=== PATIENT | female | born 1990 | race Caucasian/White ===

== ENCOUNTER 2019-11-01 19:31 | Emergency (ER) | payer OTHER, MEDICAID, SELFPAY ==
[2019-11-01 19:37] VITALS: PULSE 67; RESP 18; TEMP 36.9; O2SAT 96
[2019-11-01 19:59] LABS: Add Manual Diff / Slide Review NO; Basophils Absolute Auto 100 /uL (0-100); Basophils Percent Auto 0.5 % (0-2); Eosinophils Absolute Auto 0 /uL (0-450); Eosinophils Percent Auto 0.2 % (2-4); Hematocrit 40.6 % (36-46); Hemoglobin 14.3 g/dL (12.0-16.0); Lymphocytes Absolute Auto 2000 /uL (1100-4500); Lymphocytes Percent Auto 10.6 % (25-40); Mean Corpuscular HGB Conc 35.1 % (30-36); Mean Corpuscular Hemoglobin 32.1 PG (26-34); Mean Corpuscular Volume 91.3 fL (80-100); Monocytes Absolute Auto 900 /uL (0-900); Neutrophils Absolute Auto 15600 /uL (1500-7000); Neutrophils Percent Auto 83.7 % (50-75); Platelet Count 276 X10^3/uL (150-400); Red Blood Cell Count 4.45 X10^6/uL (4.0-5.2); Red Cell Distribution Width 12.9 % (11.6-14.8); White Blood Cell Count 18.6 X10^3/uL (4.5-11.0)
[2019-11-01 20:09] LABS: Alanine Aminotransferase 28 IU/L (<35); Albumin 4.2 g/dL (3.5-5.0); Albumin Globulin Ratio 1.5 (1.0-2.8); Alkaline Phosphatase 77 U/L (38-126); Aspartate Aminotransferase 25 IU/L (14-36); Bilirubin Total 0.3 mg/dL (0.2-1.3); Blood Urea Nitrogen 9 mg/dL (7-17); Carbon Dioxide 26 mmol/L (22-32); Chloride 100 mmol/L (98-107); Estimated Glomerular Filt Rate > 60.0 mL/min (>60); Globulin 2.8 g/dL (1.7-4.1); Glucose 93 mg/dL (70-100); HEMOLYSIS < 15 (0-50); Lipase 32 U/L (23-300); Potassium 3.9 mmol/L (3.4-5.1); Sodium 135 mmol/L (137-145)
--- NOTE | 2019-11-01 21:17 | ED.ABDPAIN ---
HPI - Abdominal Pain General Chief Complaint: Abdominal Pain Stated Complaint: stomach pain Time Seen by Provider: 11/01/19 21:16 Source: patient Mode of arrival: Ambulatory Limitations: no limitations History of Present Illness HPI narrative: The patient developed upper abdominal pain this morning. She continues to have the pain. The pain seems to be escalating to the course today. She has no associated nausea vomiting. She has been drinking fluids, no solids. She does not have anorexia. She has no low abdominal pain. She has fever chills. She denies dysuria. Her LMP was approximately 3 weeks ago, but his light. She has no program aide symptoms. is not suspected. She has no ENT complaints, cough or chest discomfort. She has no fever chills. She has no chronic GI problems. She has no history of surgeries. Related Data Previous Rx's Medication Instructions Recorded ondansetron 4 mg PO Q4H PRN #14 tab 11/01/19 ranitidine HCl [Zantac] 150 mg PO BID #15 tab 11/01/19 Allergies Allergy/AdvReac Type Severity Reaction Status Date / Time No Known Drug Allergies Allergy Verified 11/01/19 19:40 Review of Systems Review of Systems ROS Unobtainable: All systems reviewed & are unremarkable except as noted in HPI and below Constitutional Constitutional: Denies chills, Denies fever(s), Denies lethargy and Denies weakness Eyes Comments: No complaints. ENT Ears, Nose, Mouth, and Throat: Denies change in voice, Denies neck pain and Denies sore throat Cardiovascular Cardiovascular: Denies chest pain, Denies irregular heart rhythm, Denies lightheadedness, Denies palpitations, Denies dyspnea, Denies dyspnea on exertion and Denies orthopnea Respiratory Respiratory: Denies cough, Denies dyspnea, Denies dyspnea on exertion and Denies wheezing Gastrointestinal Gastrointestinal: Reports as per HPI, Reports abdominal pain, Reports cramping, Denies dyspepsia, Denies diarrhea and Denies vomiting Genitourinary Genitourinary: Denies dysuria Comments: No vaginal discharge Musculoskeletal Musculoskeletal: Denies back pain and Denies neck pain Neurologic Neurologic: Denies weakness Endocrine Endocrine: Denies palpitations Allergic/Immunologic Allergic/Immunologic: Denies wheezing Patient History Surgical History (Updated 11/01/19 @ 21:26 by Fortino Lehman MD) No significant past surgical history (Acute) Social History Smoking Status: Current every day smoker Smoking Status: Current every day smoker Exam Initial Vital Signs Initial Vital Signs: Vital Signs Temperature 98.5 F 11/01/19 19:37 Pulse Rate 67 11/01/19 19:37 Respiratory Rate 18 11/01/19 19:37 Pulse Oximetry 96 11/01/19 19:37 Const General: cooperative and well developed Nutritional Appearance: well nourished Orientation: alert, awake, oriented x3 and not confused HENMT Mouth: oral mucosae normal Eyes General: appearance normal, both eyes and all related structures Eyelids: eyelids normal Conjunctivae: conjunctivae normal Sclera: sclerae normal Pupils: PERRL EOM: EOM intact bilaterally Chest Chest: normal inspection of the chest Resp Effort & Inspection: normal respiratory effort and able to speak in complete sentences Auscultation: clear to auscultation bilaterally, no rales, no rhonchi and no wheezes Cardio Rate: regular rate Rhythm: regular rhythm Heart Sounds: S1 normal, S2 normal, no click, no gallops, no murmurs and no rubs Pulses: normal peripheral pulses GI Inspection: non-distended Palpation: soft, no hepatosplenomegaly, No guarding, No pulsatile mass and No tender Auscultation: normal bowel sounds Back/Spine/Pelvis Back: No CVA tenderness Skin General: no rashes or lesions noted and No jaundice Neuro General: alert, oriented x3, gait normal and no focal motor deficits Speech: speech normal Extrem General: full ROM, no pedal edema and no calf tenderness Course Course Course Narrative: The patient has an elevated WBC, but no fever. Labs are otherwise reassuring. Her pain has dramatically improved with the IV fluids and medications given. Evaluation is most consistent with gastritis, possible gastroenteritis. She will be discharged on Zofran and Zantac with advice to follow-up with her doctor in within 2 weeks. She should return here for increasing pain or fever. Orders Ordered: ED Orders 11/01/19 19:45 Complete Blood Count AUTO DIFF Stat Comprehensive Metabolic Panel Stat Lipase Stat 11/01/19 21:21 Complete Blood Count AUTO DIFF Stat Comprehensive Metabolic Panel Stat Lipase Stat Discontinued Medications Sodium Chloride (Normal Saline 0.9%) 1,000 mls @ 1,000 mls/hr IV BOLUS ONE Stop: 11/01/19 22:20 Last Infusion: 11/01/19 23:13 Dose: 0 mls/hr Documented by: Admin: 11/01/19 21:57 Dose: 1,000 mls/hr Documented by: RENETTA Pantoprazole Sodium (Protonix) 40 mg IV NOW ONE Stop: 11/01/19 21:22 Last Admin: 11/01/19 21:57 Dose: 40 mg Documented by: RENETTA Vital Signs Vital signs: Vital Signs - 8 hr 11/01/19 19:37 Temperature 98.5 F Pulse Rate 67 Respiratory Rate 18 Pulse Oximetry 96 MDM - Abdominal Pain Lab Data Result diagrams: 11/01/19 19:45 11/01/19 19:45 Labs: Lab Results 11/01/19 11/01/19 Range/Units 19:45 19:45 WBC 18.6 H (4.5-11.0) X10^3/uL RBC 4.45 (4.0-5.2) X10^6/uL Hgb 14.3 (12.0-16.0) g/dL Hct 40.6 (36-46) % MCV 91.3 (80-100) fL MCH 32.1 (26-34) PG MCHC 35.1 (30-36) % RDW 12.9 (11.6-14.8) % Plt Count 276 (150-400) X10^3/uL Neut % (Auto) 83.7 H (50-75) % Lymph % (Auto) 10.6 L (25-40) % [place] % (Auto) 5.0 (3-14) % Eos % (Auto) 0.2 L (2-4) % Baso % (Auto) 0.5 (0-2) % Neut # (Auto) 87154 H (6727-2954) /uL Lymph # (Auto) 2000 (3148-5410) /uL [place] # (Auto) 900 (0-900) /uL Eos # (Auto) 0 (0-450) /uL Baso # (Auto) 100 (0-100) /uL Sodium 135 L (137-145) mmol/L Potassium 3.9 (3.4-5.1) mmol/L Chloride 100 (98-107) mmol/L Carbon Dioxide 26 (22-32) mmol/L BUN 9 (7-17) mg/dL Creatinine 0.50 L (0.52-1.04) mg/dL Estimated GFR > 60.0 (>60) mL/min BUN/Creatinine Ratio 18.0 (6-22) Glucose 93 (70-100) mg/dL Calcium 9.0 (8.4-10.2) mg/dL Total Bilirubin 0.3 (0.2-1.3) mg/dL AST 25 (14-36) IU/L ALT 28 (<35) IU/L Alkaline Phosphatase 77 (38-126) U/L Total Protein 7.0 (6.3-8.2) g/dL Albumin 4.2 (3.5-5.0) g/dL Globulin 2.8 (1.7-4.1) g/dL Albumin/Globulin Ratio 1.5 (1.0-2.8) Lipase 32 (23-300) U/L Point of care testing: Point of Care Testing Test Results Negative Urine Dip Bedside Urine Glucose 100 mg/dl Bedside Urine Bilirubin - Negative Bedside Urine Ketone +/- 5 Urine Specific [place] 1.020 Bedside Urine Occult Blood - Negative Bedside Urine pH 6.0 Bedside Urine Protein - Negative Bedside Urine Urobilinogen - Negative Bedside Urine Nitrite - Negative Bedside Urine Leukocytes - Negative Esterase Discharge Plan Departure Patient Disposition: Home Clinical Impression: Abdominal pain, epigastric Instructions: DI for Epigastric Pain Activity Restrictions/Additional Instructions: Zofran every 4 hours as needed for nausea. Zantac 2 times daily for the next 2 week. Return the ER for increasing pain or fever. Recheck with her doctor within 2 weeks. Prescriptions: New ranitidine HCl [Zantac] 150 mg tablet 150 mg PO BID Qty: 15 RF: 0 ondansetron 4 mg tablet,disintegrating 4 mg PO Q4H PRN (Reason: nausea and vomiting) Qty: 14 RF: 0
[2019-11-01] MEDS: SODIUM CHLORIDE 0.9% 1,000 ML 1000 ML IV (21:57)
[2019-11-01] MEDS: PANTOPRAZOLE 40 MG VIAL IV (21:57)
[2019-11-01 23:47] VITALS: BP 122/79; PULSE 82; RESP 16; O2SAT 100
== END 2019-11-01 23:49 | disposition home or self-care (01) ==
PROVIDERS: Emergency Provider Emergency Medicine
DX: R10.13 Epigastric pain (principal)
CPT/HCPCS: 80053; 81003; 81025; 83690; 85025; 96361; 96374; 99284; C9113

== ENCOUNTER → 2023-07-01 16:15 | Outpatient (CLI) | payer OTHER, MEDICAID, SELFPAY | PROVIDERS: PCP Family Medicine; Visit Provider Nurse Practitioner Family | DX: R30.0 Dysuria (principal) | CPT/HCPCS: 87086 ==